=== PATIENT | female | born 1940 | race Caucasian/White ===

== ENCOUNTER 2025-01-17 03:28 | Emergency (ER) | payer OTHER ==
[~2025-01-17] VITALS: Ht 149.9 cm; Wt 54.4 kg
[2025-01-17] MEDS ORDERED: CLOP75TA15 PO (03:50)
[2025-01-17] MEDS ORDERED: HYDROCODONE/APAP 5-325MG TABLET ONE (04:08)
[2025-01-17] MEDS: HYDROCODONE/APAP 5-325MG TABLET PO ONE (04:09)
[2025-01-17 04:38] LABS: PLATELET COUNT (AUTO) 195 K/uL (179-408); RED BLOOD CELL COUNT(AUTO) 4.65 MIL/uL (3.63-4.92); RED CELL DISTRIBUTION WIDTH 14.7 % (12.3-17.7); WHITE BLOOD COUNT (AUTO) 9.7 K/uL (3.8-11.8)
[2025-01-17 04:44] LABS: CREATININE 1.3 mg/dL (0.6-1.3); SODIUM SERUM 137 mmol/L (136-145); UREA NITROGEN, BLOOD 40 mg/dL (7-18)
[2025-01-17 04:55] LABS: ASPARTATE AMINOTRANSFERASE 21 U/L (15-37); TOTAL PROTEIN, SERUM 8.0 g/dL (6.4-8.2)
[2025-01-17 05:30] VITALS: BP 130/80
[2025-01-17 07:04] VITALS: BP 130/80; TEMP 98; O2SAT 98
== END 2025-01-17 07:07 ==
LOC: ER 03:35
DX: R07.89 Other chest pain (principal); R06.02 Shortness of breath; R03.0 Elevated blood-pressure reading, without diagnosis of hypertension; M54.6 Pain in thoracic spine; R62.7 Adult failure to thrive; E78.5 Hyperlipidemia, unspecified; I51.9 Heart disease, unspecified; Z60.2 Problems related to living alone; Z79.02 Long term (current) use of antithrombotics/antiplatelets; Z86.73 Personal history of transient ischemic attack (TIA), and cerebral infarction without residual deficits
CPT/HCPCS: 36415; 71111; 83690; 84484; 85025; 85610; 93005; A4606; A4663